=== PATIENT | female | born 1970 | race Two or more races ===

== ENCOUNTER 2024-10-20 15:42 | Emergency (ER) | payer MEDICAID ==
[~2024-10-20] VITALS: Ht 152.4 cm; Wt 58.2 kg
[2024-10-20 15:56] VITALS: TEMP 97.9
[2024-10-20] MEDS ORDERED: CEPH-558 PO (17:41)
[2024-10-20 17:45] VITALS: BP 123/85; PULSE 79; RESP 18; O2SAT 96
== END 2024-10-20 17:46 | disposition home or self-care (01) ==
LOC: EMS 15:42
DX: N61.1 Abscess of the breast and nipple (principal)
CPT/HCPCS: 99281; 99283